=== PATIENT | female | born 2000 | race Caucasian/White ===

== ENCOUNTER 2021-04-09 19:41 | Emergency (ER) | payer OTHER ==
[~2021-04-09] VITALS: Ht 178 cm; Wt 63.5 kg
[2021-04-09 20:01] VITALS: BP 125/77
[2021-04-09] MEDS ORDERED: AMT10T PO (20:08)
--- NOTE | 2021-04-09 20:36 | ED Upper Extremity ---
General Chief Complaint: Upper Extremity Stated Complaint: L THUMB INJ Nursing Triage Note: C/O LEFT THUMB PAIN X2 DAYS AFTER PLAYING VOLLEYBALL. REPORTS BEING SEEN AT [facility]. HAVING XRAY. UNSURE OF RESULTS. 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 Was seen and evaluated at walk-in [facility], x-ray completed but DRAY DRIVER wasn't sure if there was fx or not. Splint applied to left thumb. Patient called [facility] 3 times today and radiology results were never given to her. She is concerned because the thumb is continuing to hurt and swell. 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 She has not elevated or iced it Onset: yesterday Pain/Injury Location: left shoulder Method of Injury: sports injury Allergies and Home Medications Allergies Uncoded Allergies: TRIPTANS" (Allergy, Unknown, 04/09/21) Patient Home Medication List Home Medication List Reviewed: Yes Review of Systems Constitutional: no symptoms reported, see HPI Musculoskeletal: see HPI, joint pain (Left thumb) All Other Systems Reviewed Negative Unless Noted: Yes Past Npmfxwp-Sbzeud-Zkiajs Hx Patient Social History Tobacco Use?: No Use of E-Cig and/or Vaping dev: No Substance use?: No Alcohol Use?: No Pt feels they are or have been: No Immunizations Up To Date Second COVID19 Vaccination Mark: 12/20 Past Medical History Surgery/Hospitalization HX: ORHTO, T/A Last Menstrual Period: Apr 04, 2021 Family Medical History Reviewed Nursing Family Hx Physical Exam Vital Signs Vital Signs - First Documented 04/09/21 20:01 Temp 36.5 Pulse 101 Resp 18 B/P (MAP) 125/77 (93) Pulse Ox 99 O2 Delivery Room Air Capillary Refill : Less Than 3 Seconds Height, Weight, BMI Height: '" Weight: lbs. oz. kg; 20.00 BMI Method: General Appearance: WD/WN, no apparent distress Cardiovascular: normal peripheral pulses, regular rate, rhythm Respiratory: chest non-tender, lungs clear, normal breath sounds Hand: Left, bone tenderness (Trace), limited ROM (Active range of motion is decreased per patient, however when passively moved she is able to maintain in full extension and her resisted flexion is V/V. No instability at PIP or MCP. ), soft tissue tenderness, swelling (Minimal) Neurologic/Psychiatric: no motor/sensory deficits, alert, normal mood/affect, oriented x 3 Skin: normal color, warm/dry Progress/Results/Core Measures Results/Orders Vital Signs/I&O 04/09/21 20:01 Temp 36.5 Pulse 101 Resp 18 B/P (MAP) 125/77 (93) Pulse Ox 99 O2 Delivery Room Air Blood Pressure Mean: 93 Progress Progress Note : Time: 20:05 Progress Note Patient seen and evaluated, ice pack to left thumb. Will attempt to obtain the x-ray results to avoid repeat radiation exposure. [address] Shelby, reviewed x-ray of thumb, radiologist report negative for acute injury, dislocation or fracture. 2039 results of x-ray discussed with the patient. No wrist splints available in the emergency department. The splint that she was provided at [facility] was reapplied. Discharge instruction and return precautions were reviewed with the patient. Departure Impression Primary Impression: Contusion of left thumb Qualified Codes: S60.012A - Contusion of left thumb without damage to nail, initial encounter Disposition: HOME, SELF-CARE Condition: Improved Departure-Patient Inst. Decision time for Depature: 20:40 Referrals: NO,LOCAL PHYSICIAN (PCP/Family) Primary Care Physician Patient Instructions: My [facility] ([facility]) Add. Discharge Instructions: Use the wrist splint provided from [facility], remove 2-3 times daily for gentle range of motion to the left thumb. Wear the splint for approximately 2 weeks and then remove and progress to normal activities. You may apply ice to the left thumb for 20 min every 2 hours as needed for pain. You may alternate between ibuprofen 600 mg and Tylenol 650 mg every 4 hours for pain. Follow-up with [employer] student [facility] if symptoms are not improving or worsen. Return to the emergency department for new, urgent healthcare needs. All discharge instructions reviewed with patient and/or family. Voiced understanding. Copy Copies To 1: LV CHEN MD, AMY ARNP Apr 09, 2021 20:36
== END 2021-04-09 20:53 | disposition home or self-care (01) ==
LOC: ER 19:43
DX: S60.012A Contusion of left thumb without damage to nail, initial encounter (principal); W21.06XA Struck by volleyball, initial encounter; Y93.68 Activity, volleyball (beach) (court)
CPT/HCPCS: 99282